=== PATIENT | male | born 1980 | race Hispanic/Latino ===

== ENCOUNTER 2019-03-02 18:34 | Emergency (ER) | payer BC ==
[2019-03-02 18:49] VITALS: BP 140/73; PULSE 62; RESP 16; TEMP 98.5; O2SAT 96
[2019-03-02] MEDS ORDERED: Absorbable Gelatin Sponge Size 12-7 ONE (18:58)
--- NOTE | 2019-03-02 19:58 | ED PDOC ---
Upper Extremity Pain/Injury Time Seen by Provider: 03/02/19 19:36 Chief Complaint (Nursing): Upper Extremity Problem/Injury Chief Complaint (Provider): Upper Extremity Problem/Injury History Per: Patient History/Exam Limitations: no limitations Onset/Duration Of Symptoms: Hrs (x2) Current Symptoms Are (Timing): Still Present Additional Complaint(s): 39 year old male with no significant past medical history presents to the ED s/p skin avulsion. Patient was cutting potatoes with a mandolin slicer at 5:30pm when the left upper corner of the right finger pad was completely avulsed. Patient attempted to take care of it himself by using pressure, but was unsuccessful in stopping bleeding, prompting ED visit. Last tetanus shot was 3 years ago. PMD: none provided Past Medical History Reviewed: Historical Data, Nursing Documentation, Vital Signs Vital Signs: Last Vital Signs Temp 98.5 F 03/02/19 18:48 Pulse 62 03/02/19 18:48 Resp 16 03/02/19 18:48 BP 140/73 03/02/19 18:48 Pulse Ox 96 03/02/19 18:48 Primary Care Provider: FAMILY PROVIDER,NO - Medical History PMH: No Chronic Diseases - Family History Family History: States: Unknown Family Hx - Home Medications Home Medications: Ambulatory Orders Medication Instructions Recorded Cephalexin [Keflex] 500 mg PO QID #20 capsule 03/02/19 - Allergies Allergies/Adverse Reactions: Allergies Allergy/AdvReac Type Severity Reaction Status Date / Time No Known Allergies Allergy Verified 03/02/19 18:50 Review of Systems ROS Statement: Except As Marked, All Systems Reviewed And Found Negative Skin: Positive for: Other (right finger skin avulsion and pain ) Physical Exam - Reviewed Nursing Documentation Reviewed: Yes Vital Signs Reviewed: Yes - Physical Exam Appears: Positive for: No Acute Distress Skin: Positive for: Normal Color, Warm, Dry Eye Exam: Positive for: EOMI, Normal appearance, PERRL Extremity: Positive for: Other (1 cm in length and less than 0.5 cm deep skin avulsion to the left upper corner of the right finger pad with no nail involvement , no bone or tendon involvement suspected, normal ROM in all other digits) Neurological/Psych: Positive for: Awake, Alert, Oriented (x3) - ECG O2 Sat by Pulse Oximetry: 96 (RA) Pulse Ox Interpretation: Normal Medical Decision Making Medical Decision Making: Time: 1940 --Applied gel foam to the finger, applied pressure for about 10 minutes, covered with tefla and cling. Instructed to keep dry and clean for at least 48 hrs. Patient given Keflex in ED and discharged home with a prescription for Kelfex. Patient understands and agrees to plan of care. Return parameters given. Scribe Attestation: Documented by Mary Abernathy acting as a scribe for Chelsi Murphy APN. Provider Scribe Attestation: All medical record entries made by the Scribe were at my direction and personally dictated by me. I have reviewed the chart and agree that the record accurately reflects my personal performance of the history, physical exam, medical decision making, and the department course for this patient. I have also personally directed, reviewed, and agree with the discharge instructions and disposition. Disposition - Clinical Impression Clinical Impression: Finger injury - Patient ED Disposition Is Patient to be Admitted: No Counseled Patient/Family Regarding: Diagnosis, Rx Given - Disposition Disposition: Routine/Home Disposition Time: 19:55 Condition: GOOD Prescriptions: Cephalexin [Keflex] 500 mg PO QID #20 capsule Instructions: Common Finger Injuries (DC) - POA Present On Arrival: None
== END 2019-03-02 20:10 | disposition home or self-care (01) ==
LOC: H.ER 18:34
DX: S61.011A Laceration without foreign body of right thumb without damage to nail, initial encounter (principal); W26.8XXA Contact with other sharp object(s), not elsewhere classified, initial encounter; Y92.000 Kitchen of unspecified non-institutional (private) residence as the place of occurrence of the external cause